=== PATIENT | male | born 1975 | race Two or more races ===

== ENCOUNTER 2020-04-21 07:45 | Day surgery (SDC) | payer OTHER | END 2020-04-21 12:35 | disposition home or self-care (01) | LOC: AMB-ENDOS 07:45 | PROVIDERS: ATTEND Surgery | DX: D12.0 Benign neoplasm of cecum (principal); D12.3 Benign neoplasm of transverse colon; K64.8 Other hemorrhoids; Z20.822 Contact with and (suspected) exposure to COVID-19 ==

== ENCOUNTER 2022-03-17 13:54 | Outpatient (CLI) | payer OTHER | END 2022-03-17 14:01 | disposition home or self-care (01) | LOC: RAD 13:54 | PROVIDERS: ATTEND Internal Medicine Pulmonary Disease | DX: U09.9 Post COVID-19 condition, unspecified (principal); J15.9 Unspecified bacterial pneumonia; Z86.718 Personal history of other venous thrombosis and embolism; Z79.01 Long term (current) use of anticoagulants ==